=== PATIENT | male | born 1970 | race African-American/Black ===

== ENCOUNTER 2017-11-06 14:03 | Inpatient (IN) | payer BC ==
[~2017-11-06] VITALS: Ht 177.8 cm; Wt 136.9 kg
[~2017-11-06 14:03] MED LIST: ALBUTEROL2.5 MG/3 M IN; BABY ASPIRIN81 MG OR; BACTRIM DS1 TAB OR; DOXYCYC MONO100 M1 OR; LISINOP/HCTZ1 TA1 OR; LORTAB 5 OR; MEDDOSEPAK OR; RELENZA IN; SG ASPIRIN325 MG OR; TUSSIONEX1 ML OR; ULTRAM50 M1 OR; ZANTAC150 M1 OR; ZOFRAN ODT4 MG OR
[2017-11-06] MEDS ORDERED: LISINOPRIL20 M1 PO (14:08)
[2017-11-06] MEDS ORDERED: HYDROCHLOROT12.5 MG PO (14:09)
[2017-11-06] MEDS ORDERED: METFORMIN500 M2 PO (14:10)
[2017-11-06] MEDS ORDERED: AMLODIPINE10 MG PO (14:10)
[2017-11-09] VITALS (7 sets, daily range): BP systolic 96–127; BP diastolic 52–75
[2017-11-09] MEDS ORDERED: ZANTAC150 M1 PO (15:51)
[2017-11-10] VITALS (16 sets, daily range): BP systolic 107–176; BP diastolic 58–84
[2017-11-10 07:45] LABS: HEMATOCRIT 45.5 % (39.0-50.0); HEMOGLOBIN 14.8 g/dl (14.0-18.0); IMMATURE GRANULOCYTES 0.7 % (0.0-1.0); MEAN CELL VOLUME 93.2 fL CALC (80.0-100.0); MEAN CORPUSCULAR HGB 30.3 pG CALC (26.0-32.0); MEAN CORPUSCULAR HGB CONC 32.5 g/L CALC (32.0-36.0); NEUT# 13.57 thou/uL (1.82-7.42); RED BLOOD COUNT 4.88 mill/uL (4.70-6.10); RED CELL DISTRI WIDTH 12.3 % (11.5-15.5)
[2017-11-10 08:06] LABS: ALBUMIN 4.2 g/dL (3.2-5.0); ALKALINE PHOSPHATASE 77 u/l (38-126); ANION GAP 18 (6-22 (CALC)); BILIRUBIN, TOTAL 0.6 mg/dL (0.0-1.4); BUN 12 mg/dL (9-20); BUN/CREATININE RATIO 14 (12-20 (CALC)); CARBON DIOXIDE 27 mmol/l (22-30); CHLORIDE 98 mmol/l (95-108); CREATININE 0.9 mg/dL (0.7-1.3); GFR > 60 ML/MIN (>=60 (CALC)); GFR FOR AFR.AMER. > 60 ML/MIN (>=60 (CALC)); POTASSIUM 4.8 mmol/l (3.5-5.1); SGOT/AST 40 u/l (17-59); SGPT/ALT 92 u/l (21-72); SODIUM 138 mmol/l (137-146); TOTAL PROTEIN 7.7 g/dL (6.3-8.2)
[2017-11-11] VITALS (7 sets, daily range): BP systolic 105–148; BP diastolic 56–75
[2017-11-11 07:41] LABS: HEMOGLOBIN 13.5 g/dl (14.0-18.0); MEAN CELL VOLUME 91.9 fL CALC (80.0-100.0); MEAN CORPUSCULAR HGB 30.3 pG CALC (26.0-32.0); MEAN CORPUSCULAR HGB CONC 32.9 g/L CALC (32.0-36.0); RED BLOOD COUNT 4.46 mill/uL (4.70-6.10); RED CELL DISTRI WIDTH 12.4 % (11.5-15.5)
[2017-11-11 08:03] LABS: ANION GAP 17 (6-22 (CALC)); BUN 12 mg/dL (9-20); BUN/CREATININE RATIO 14 (12-20 (CALC)); CARBON DIOXIDE 27 mmol/l (22-30); CHLORIDE 95 mmol/l (95-108); CREATININE 0.9 mg/dL (0.7-1.3); GFR > 60 ML/MIN (>=60 (CALC)); GFR FOR AFR.AMER. > 60 ML/MIN (>=60 (CALC)); POTASSIUM 4.1 mmol/l (3.5-5.1); SODIUM 134 mmol/l (137-146)
[2017-11-12 00:13] LABS: URINE BLOOD DIPSTICK TRACE-INTACT (NEGATIVE); URINE COLOR YELLOW; URINE GLUCOSE - DIPSTICK NEGATIVE (NEGATIVE); URINE KETONE TRACE mg/dL (NEGATIVE); URINE LEUK ESTERASE NEGATIVE (Negative); URINE NITRITE - DIPSTICK NEGATIVE (Negative); URINE PROTEIN - DIPSTICK 100 mg/dL (NEG-TRACE); URINE SPECIFIC GRAVITY 1.025
[2017-11-12 00:18] LABS: URINE BILIRUBIN - DIPSTICK SMALL (NEGATIVE); URINE CLARITY CLEAR
[2017-11-12 00:23] LABS: URINE BACTERIA FEW hpf; URINE HYALINE CAST FEW lpf (NONE-RARE); URINE MUCUS MODERATE hpf (NONE-FEW); URINE SQUAMOUS EPITHELIAL CELL MODERATE EPI/hpf (0-FEW)
[2017-11-12 00:34] VITALS: BP 113/69
[2017-11-12 04:25] VITALS: BP 102/69
[2017-11-12 05:48] LABS: ANION GAP 18 (6-22 (CALC)); BUN 22 mg/dL (9-20); BUN/CREATININE RATIO 18 (12-20 (CALC)); CARBON DIOXIDE 30 mmol/l (22-30); CHLORIDE 92 mmol/l (95-108); CREATININE 1.3 mg/dL (0.7-1.3); GFR 59 ML/MIN (>=60 (CALC)); GFR FOR AFR.AMER. > 60 ML/MIN (>=60 (CALC)); HEMATOCRIT 40.8 % (39.0-50.0); HEMOGLOBIN 13.4 g/dl (14.0-18.0); MAGNESIUM 2.6 mg/dL (1.6-2.3); POTASSIUM 4.7 mmol/l (3.5-5.1); SODIUM 136 mmol/l (137-146)
[2017-11-12 07:52] VITALS: BP 124/65
[2017-11-12] MEDS ORDERED: LOPRESSOR25 MG PO (11:17)
[2017-11-12] MEDS ORDERED: ASPIRIN EC325 MG PO (11:17)
[2017-11-12] MEDS ORDERED: SURFAK240 MG/CAP PO (11:17)
[2017-11-12] MEDS ORDERED: PERCOCET 10/31 COMBO PO (11:17)
[2017-11-12 11:36] VITALS: BP 119/64
== END 2017-11-12 13:23 | disposition home health service (06) | DRG 469 ==
LOC: MS2 11-09 11:56 → ICU 11-09 20:25 → MS2 11-10 20:45
PROVIDERS: Internal Medicine; Nurse Practitioner Family; ADMIT Orthopaedic Surgery; ATTEND Orthopaedic Surgery
PROC: 0SRD0J9 Replacement of Left Knee Joint with Synthetic Substitute, Cemented, Open Approach (ICD-10-PCS; principal; 2017-11-09)
PROC: 5A09357 Assistance with Respiratory Ventilation, Less than 24 Consecutive Hours, Continuous Positive Airway Pressure (ICD-10-PCS; 2017-11-09)
DX: M17.12 Unilateral primary osteoarthritis, left knee (principal); J96.22 Acute and chronic respiratory failure with hypercapnia; E87.2 Acidosis; J95.88 Other intraoperative complications of respiratory system, not elsewhere classified; Z68.41 Body mass index [BMI] 40.0-44.9, adult; E11.9 Type 2 diabetes mellitus without complications; F17.210 Nicotine dependence, cigarettes, uncomplicated; I10 Essential (primary) hypertension; G47.33 Obstructive sleep apnea (adult) (pediatric); R00.0 Tachycardia, unspecified; K59.00 Constipation, unspecified; R60.1 Generalized edema; Y83.1 Surgical operation with implant of artificial internal device as the cause of abnormal reaction of the patient, or of later complication, without mention of misadventure at the time of the procedure